=== PATIENT | male | born 2000 | race Caucasian/White ===

== ENCOUNTER 2019-03-04 00:59 | Emergency (ER) | payer SELFPAY ==
[2019-03-04] MEDS ORDERED: LACTATED RINGERS 1,000 ML IV ONE ×2 (01:00→01:19)
[2019-03-04] MEDS ORDERED: LACTATED RINGERS 2,000 ML ONE (01:04)
[2019-03-04 01:13] VITALS: BP 126/58
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
--- NOTE | 2019-03-04 02:12 | XRay Report ---
Left elbow 2 views INDICATION: Left elbow pain IMPRESSION: Prominent soft tissue laceration without evidence of retained foreign body. No dislocatio n Signer Name: Rayray Jiang MD Signed: 03/04/2019 2:08 AM Workstation Name: [id number]
== END 2019-03-04 01:45 | disposition other institution (70) ==
LOC: EDBD → ED 00:59
DX: S31.104A Unspecified open wound of abdominal wall, left lower quadrant without penetration into peritoneal cavity, initial encounter (principal); S51.002A Unspecified open wound of left elbow, initial encounter; X58.XXXA Exposure to other specified factors, initial encounter; Y93.89 Activity, other specified; Y92.89 Other specified places as the place of occurrence of the external cause; Y99.8 Other external cause status
CPT/HCPCS: 36430; 73070; 74018; 86850; 86900; 86901; 86920; 99291; J7120; P9016